=== PATIENT | male | born 1995 | race Caucasian/White ===

== ENCOUNTER 2018-12-18 17:56 | Emergency (ER) | payer SELFPAY ==
[~2018-12-18] VITALS: Wt 78.0 kg
[2018-12-18 18:03] VITALS: BP 129/79; PULSE 79; RESP 18
== END 2018-12-18 18:39 | disposition left against medical advice (07) ==
LOC: FTE 17:56
DX: Z53.21 Procedure and treatment not carried out due to patient leaving prior to being seen by health care provider (principal)